=== PATIENT | female | born 1995 | race Caucasian/White ===

== ENCOUNTER 2017-08-07 21:11 | Emergency (ER) | payer OTHER ==
[~2017-08-07] VITALS: Ht 170.2 cm; Wt 73.9 kg
[~2017-08-07 21:11] MED LIST: IBUP600T22 PO; IBUP800T37 PO; LOR5/325 PO
[2017-08-07 21:20] VITALS: BP 118/70
== END 2017-08-07 23:15 | disposition home or self-care (01) ==
LOC: ER 21:37
DX: T74.21XA Adult sexual abuse, confirmed, initial encounter (principal); S20.01XA Contusion of right breast, initial encounter; S20.211A Contusion of right front wall of thorax, initial encounter; S30.23XA Contusion of vagina and vulva, initial encounter; S31.41XA Laceration without foreign body of vagina and vulva, initial encounter; Y04.1XXA Assault by human bite, initial encounter
CPT/HCPCS: 99281